=== PATIENT | male | born 1970 | race Caucasian/White ===

== ENCOUNTER → 2018-09-05 | Outpatient (CLI) | payer BC ==
[~2018-09-05] VITALS: Ht 162.6 cm; Wt 129.7 kg
[~2018-09-05] MED LIST: ADENOSINE 109 MG in GIVE UN-DILUTED 0 ML IV ONE; ADENOSINE 90 MG/30 ML INJ IV ONE; cloNIDine HCL 0.1 MG TAB ONE
--- NOTE | 2018-09-05 12:10 | NUR ---
Clonidine 0.1 mg given for BP of 202/100. BP reassessed, final BP 156/90 HR 98.
== END | disposition home or self-care (01) ==
LOC: Rad HDHVI 09:00
PROVIDERS: ATTEND Internal Medicine Cardiovascular Disease
DX: I10 Essential (primary) hypertension (principal); E66.9 Obesity, unspecified; G47.30 Sleep apnea, unspecified; R00.2 Palpitations
CPT/HCPCS: 78452; 93005; 93306; 96374; 96375; A9500; J0153